=== PATIENT | male | born 1985 | race Caucasian/White ===

== ENCOUNTER 2018-02-17 11:37 | Inpatient (IN) | payer OTHER ==
[2018-02-17] MEDS ORDERED: Ondansetron 4 MG/2 ML SDV IVPUSH ONE (12:11)
[2018-02-17] MEDS ORDERED: Famotidine 20 MG/2 ML SDV IVPUSH ONE (12:11)
[2018-02-17] MEDS ORDERED: Sodium Chloride 0.9% 10 ML Syringe FLUSH PRN ×2 (12:11→14:37)
[2018-02-17] MEDS ORDERED: HYDROmorphone 0.5 MG/0.5 ML SYRINGE IVPUSH ONE ×2 (12:11→14:18)
[2018-02-17] MEDS ORDERED: Sodium Chloride 0.9% 1,000 ML IV SCH (12:15)
--- NOTE | 2018-02-17 12:27 | EDM.PDOC ---
ED HPI GENERAL MEDICAL PROBLEM - General Chief Complaint: Abdominal Pain Stated Complaint: ABDOMINAL PAIN/VOMITING/CHILLS Time Seen by Provider: 02/17/18 11:49 Source of Information: Reports: Patient, RN Notes Reviewed - History of Present Illness INITIAL COMMENTS - FREE TEXT/NARRATIVE: 32-year-old male started with abdominal pain last evening. The pain was mid lower abdomen dull ache with occasional cramping and mild nausea. he was able to sleep through the night but then felt more ill upon awakening this morning.It is more severe, the nausea is worse. He has not been able to eat and has had difficulty even drinking fluid. He has had 2 or 3 episodes of vomiting, had a small amountof loose stool but not watery diarrhea. No blood visible with that. He feels like he is having chills and low-grade fever.no Chest pain or difficulty breathing. Lower Abdomen Pain Score (Numeric/FACES): 8 - Related Data Allergies Allergy/AdvReac Type Severity Reaction Status Date / Time No Known Allergies Allergy Verified 02/17/18 11:48 Home Meds: Home Meds . [No Known Home Meds] 02/17/18 [History] Past Medical History Psychiatric History: Reports: PTSD Social & Family History - Tobacco Use Years of Tobacco use: 1 Packs/Tins Daily: 3 - Caffeine Use Caffeine Use: Reports: Energy Drinks, Soda - Recreational Drug Use Recreational Drug Use: No ED ROS GENERAL - Review of Systems Review Of Systems: See Below Constitutional: Reports: Fever, Chills (low-grade), Fatigue HEENT: Reports: No Symptoms Respiratory: Denies: Shortness of Breath Cardiovascular: Denies: Chest Pain GI/Abdominal: Reports: Abdominal Pain, Nausea, Vomiting. Denies: Diarrhea Musculoskeletal: Reports: Other Skin: Reports: No Symptoms (feels achy) Neurological: Reports: Dizziness ED EXAM, GI/ABD - Physical Exam Exam: See Below Exam Limited By: No Limitations General Appearance: Alert, Mild Distress Eyes: Bilateral: Normal Appearance Throat/Mouth: Normal Inspection, Normal Oropharynx Head: Atraumatic Neck: Supple, Full Range of Motion Respiratory/Chest: No Respiratory Distress, Lungs Clear, Normal Breath Sounds Cardiovascular: Regular Rate, Rhythm GI/Abdominal Exam: Tender (oderate tenderness left lower abdomen, lower mid abdomen, mild tenderness right lower quadrant). No: Guarding, Rebound Back Exam: No: CVA Tenderness (L), CVA Tenderness (R) Extremities: Normal Inspection, Normal Range of Motion Neurological: Alert, Oriented, No Motor/Sensory Deficits Skin Exam: Warm, Dry, Normal Color Course - Vital Signs Last Recorded V/S: Last Vital Signs Temp 99.9 F 02/17/18 11:55 Pulse 95 02/17/18 11:55 Resp 20 02/17/18 11:55 BP 117/68 02/17/18 11:55 Pulse Ox 100 02/17/18 11:55 - Orders/Labs/Meds Orders: Active Orders 24 hr Category Date Time Status Peripheral IV Care [RC] . DIRECTED Care 02/17/18 12:12 Active Abdomen Pelvis w Cont [CT] Stat Exams 02/17/18 13:32 Taken Levofloxacin/Dextrose 5%-Water [Levaquin in D5W 750 MG/ Med 02/17/18 15:17 Active 150 ML] 750 mg Premix Bag 1 bag IV ONETIME Sodium Chloride 0.9% [Normal Saline] 1,000 ml Med 02/17/18 12:15 Active IV ONETIME Sodium Chloride 0.9% [Saline Flush] Med 02/17/18 12:11 Active 10 ml FLUSH ASDIRECTED PRN Sodium Chloride 0.9% [Saline Flush] Med 02/17/18 14:37 Active 10 ml FLUSH ONETIME PRN metroNIDAZOLE/Normal Saline [Flagyl 500 MG in NS 100 ML Med 02/17/18 15:17 Active ] 500 mg Premix Bag 1 bag IV ONETIME Peripheral IV Insertion Adult [OM.PC] Stat Oth 02/17/18 12:10 Ordered Medication Orders Sodium Chloride (Normal Saline) 1,000 mls @ 999 mls/hr IV ONETIME [facility] Last Admin: 02/17/18 12:31 Dose: 999 mls/hr Levofloxacin/Dextrose 750 mg/ (Premix) 150 mls @ 100 mls/hr IV ONETIME ONE Stop: 02/17/18 16:46 Last Admin: 02/17/18 15:30 Dose: 100 mls/hr Metronidazole 500 mg/ Premix 100 mls @ 100 mls/hr IV ONETIME ONE Stop: 02/17/18 16:16 Sodium Chloride (Saline Flush) 10 ml FLUSH ASDIRECTED PRN PRN Reason: Keep Vein Open Last Admin: 02/17/18 12:38 Dose: 10 ml Sodium Chloride (Saline Flush) 10 ml FLUSH ONETIME PRN PRN Reason: IV FLUSH Last Admin: 02/17/18 14:52 Dose: 10 ml Labs: Laboratory Tests 02/17/18 02/17/18 02/17/18 Range/Units 12:00 12:30 12:30 WBC 18.86 H (4.23-9.07) K/mm3 RBC 4.78 (4.63-6.08) M/mm3 Hgb 14.5 (13.7-17.5) gm/L Hct 42.0 (40.1-51.0) % MCV 87.9 (79.0-92.2) fl MCH 30.3 (25.7-32.2) pg MCHC 34.5 (32.2-35.5) g/dl RDW Std Deviation 41.3 (35.1-43.9) fL Plt Count 327 (163-337) K/mm3 MPV 10.7 (9.4-12.3) fl Neut % (Auto) 85.3 H (34.0-67.9) % Lymph % (Auto) 4.8 L (21.8-53.1) % [place] % (Auto) 9.4 (5.3-12.2) % Eos % (Auto) 0.1 L (0.8-7.0) Baso % (Auto) 0.1 (0.1-1.2) % Neut # (Auto) 16.08 H (1.78-5.38) K/mm3 Lymph # (Auto) 0.90 L (1.32-3.57) K/mm3 [place] # (Auto) 1.78 H (0.30-0.82) K/mm3 Eos # (Auto) 0.02 L (0.04-0.54) K/mm3 Baso # (Auto) 0.02 (0.01-0.08) K/mm3 Manual Slide Review Abnormal smear Sodium (136-145) mEq/L Potassium (3.5-5.1) mEq/L Chloride (98-107) mEq/L Carbon Dioxide (21-32) mEq/L Anion Gap (5-15) BUN (7-18) mg/dL Creatinine (0.7-1.3) mg/dL Est Cr Clr Drug Dosing mL/min Estimated GFR (MDRD) (>60) mL/min BUN/Creatinine Ratio (14-18) Glucose (74-106) mg/dL Calcium (8.5-10.1) mg/dL Total Bilirubin (0.2-1.0) mg/dL AST (15-37) U/L ALT (16-63) U/L Alkaline Phosphatase (46-116) U/L C-Reactive Protein 19.3 H* (<1.0) mg/dL Total Protein (6.4-8.2) g/dl Albumin (3.4-5.0) g/dl Globulin gm/dL Albumin/Globulin Ratio (1-2) Urine Color Dark yellow (Yellow) Urine Appearance Clear (Clear) Urine pH 8.5 H (5.0-8.0) Ur Specific [place] 1.020 (1.005-1.030) Urine Protein 1+ H (Negative) Urine Glucose (UA) Negative (Negative) Urine Ketones Trace H (Negative) Urine Occult Blood Negative (Negative) Urine Nitrite Negative (Negative) Urine Bilirubin 1+ H (Negative) Urine Urobilinogen 0.2 (0.2-1.0) Ur Leukocyte Esterase Negative (Negative) Urine RBC 0-5 (0-5) /hpf Urine WBC 0-5 (0-5) /hpf Ur Epithelial Cells Not seen (0-5) /hpf Urine Bacteria Few (FEW) /hpf Urine Mucus Few (FEW) /hpf 18 Range/Units 12:30 WBC (4.23-9.07) K/mm3 RBC (4.63-6.08) M/mm3 Hgb (13.7-17.5) gm/L Hct (40.1-51.0) % MCV (79.0-92.2) fl MCH (25.7-32.2) pg MCHC (32.2-35.5) g/dl RDW Std Deviation (35.1-43.9) fL Plt Count (163-337) K/mm3 MPV (9.4-12.3) fl Neut % (Auto) (34.0-67.9) % Lymph % (Auto) (21.8-53.1) % [place] % (Auto) (5.3-12.2) % Eos % (Auto) (0.8-7.0) Baso % (Auto) (0.1-1.2) % Neut # (Auto) (1.78-5.38) K/mm3 Lymph # (Auto) (1.32-3.57) K/mm3 [place] # (Auto) (0.30-0.82) K/mm3 Eos # (Auto) (0.04-0.54) K/mm3 Baso # (Auto) (0.01-0.08) K/mm3 Manual Slide Review Sodium 138 (136-145) mEq/L Potassium 3.9 (3.5-5.1) mEq/L Chloride 102 (98-107) mEq/L Carbon Dioxide 25 (21-32) mEq/L Anion Gap 14.9 (5-15) BUN 15 (7-18) mg/dL Creatinine 1.3 (0.7-1.3) mg/dL Est Cr Clr Drug Dosing 80.82 mL/min Estimated GFR (MDRD) > 60 (>60) mL/min BUN/Creatinine Ratio 11.5 L (14-18) Glucose 105 (74-106) mg/dL Calcium 9.6 (8.5-10.1) mg/dL Total Bilirubin 1.7 H (0.2-1.0) mg/dL AST 30 (15-37) U/L ALT 75 H (16-63) U/L Alkaline Phosphatase 58 (46-116) U/L C-Reactive Protein (<1.0) mg/dL Total Protein 7.7 (6.4-8.2) g/dl Albumin 4.1 (3.4-5.0) g/dl Globulin 3.6 gm/dL Albumin/Globulin Ratio 1.1 (1-2) Urine Color (Yellow) Urine Appearance (Clear) Urine pH (5.0-8.0) Ur Specific [place] (1.005-1.030) Urine Protein (Negative) Urine Glucose (UA) (Negative) Urine Ketones (Negative) Urine Occult Blood (Negative) Urine Nitrite (Negative) Urine Bilirubin (Negative) Urine Urobilinogen (0.2-1.0) Ur Leukocyte Esterase (Negative) Urine RBC (0-5) /hpf Urine WBC (0-5) /hpf Ur Epithelial Cells (0-5) /hpf Urine Bacteria (FEW) /hpf Urine Mucus (FEW) /hpf Meds: Medications Generic Name Dose Route Start Last Admin Trade Name Mikeq PRN Reason Stop Dose Admin Sodium Chloride 1,000 mls @ 999 mls/hr 02/17/18 12:15 02/17/18 12:31 Normal Saline IV 999 mls/hr ONETIME [facility] Administration Levofloxacin/Dextrose 750 mg/ 150 mls @ 100 mls/hr 02/17/18 15:17 02/17/18 15 :30 Premix IV 02/17/18 16:46 100 mls/hr ONETIME ONE Administration Metronidazole 500 mg/ Premix 100 mls @ 100 mls/hr 02/17/18 15:17 IV 02/17/18 16:16 ONETIME ONE Sodium Chloride 10 ml 02/17/18 12:11 02/17/18 12:38 Saline Flush FLUSH 10 ml ASDIRECTED PRN Administration Keep Vein Open Sodium Chloride 10 ml 02/17/18 14:37 02/17/18 14:52 Saline Flush FLUSH 10 ml ONETIME PRN Administration IV FLUSH Discontinued Medications Generic Name Dose Route Start Last Admin Trade Name Robert PRN Reason Stop Dose Admin Diatrizoate Meglum/Diatrizoate Sod 90 ml 02/17/18 14:37 02/17/18 14:52 Gastrografin 37% PO 02/17/18 14:38 90 ml ONETIME ONE Administration Famotidine 20 mg 02/17/18 12:11 02/17/18 12:35 Pepcid IVPUSH 02/17/18 12:12 20 mg ONETIME ONE Administration Hydromorphone HCl 0.5 mg 02/17/18 12:11 02/17/18 12:34 Dilaudid IVPUSH 02/17/18 12:12 0.5 mg ONETIME ONE Administration Hydromorphone HCl 0.5 mg 02/17/18 14:18 02/17/18 14:24 Dilaudid IVPUSH 02/17/18 14:19 0.5 mg ONETIME ONE Administration Iopamidol 125 ml 02/17/18 14:37 02/17/18 14:52 Isovue-300 (61%) IVPUSH 02/17/18 14:38 125 ml ONETIME ONE Administration Ondansetron HCl 4 mg 02/17/18 12:11 02/17/18 12:32 Zofran IVPUSH 02/17/18 12:12 4 mg ONETIME ONE Administration - Re-Assessments/Exams Free Text/Narrative Re-Assessment/Exam: 02/17/18 15:39 white blood count elevated at 18,000 range C-reactive protein 19. CT of abdomen pelvis has been done which does show acute diverticulitis. Levaquin ordered along with IV Flagyl.Has had IV Dilaudid 0.5 mg 2 with fairly good relief. He has also had IV Zofran and IV Pepcid. He will be admitted for further inpatient treatment. Departure - Departure Time of Disposition: 15:30 Disposition: Admitted As Inpatient 65 Condition: Fair Clinical Impression: Diverticulitis large intestine Qualifiers: Diverticulitis bleeding: without bleeding Diverticulitis complication: unspecified complication status Qualified Code(s): K57.32 - Diverticulitis of large intestine without perforation or abscess without bleeding - Discharge Information Referrals: Monica Perkins DO [Primary Care Provider] - Forms: ED Department Discharge ED Communication - Discussed Case With (1) Discussed Case With (1): Admitting Provider (Dr Farah, decision to admit at about 15:30.) - My Orders Last 24 Hours: My Active Orders 02/17/18 12:10 Peripheral IV Insertion Adult [OM.PC] Stat 02/17/18 12:11 Sodium Chloride 0.9% [Saline Flush] 10 ml FLUSH ASDIRECTED PRN 02/17/18 12:12 Peripheral IV Care [RC] . DIRECTED 02/17/18 12:15 Sodium Chloride 0.9% [Normal Saline] 1,000 ml IV ONETIME 02/17/18 13:32 Abdomen Pelvis w Cont [CT] Stat 02/17/18 14:37 Sodium Chloride 0.9% [Saline Flush] 10 ml FLUSH ONETIME PRN 02/17/18 15:17 Levofloxacin/Dextrose 5%-Water [Levaquin in D5W 750 MG/150 ML] 750 mg Premix Bag 1 bag IV ONETIME metroNIDAZOLE/Normal Saline [Flagyl 500 MG in NS 100 ML] 500 mg Premix Bag 1 bag IV ONETIME - Assessment/Plan Last 24 Hours: My Active Orders 02/17/18 12:10 Peripheral IV Insertion Adult [OM.PC] Stat 02/17/18 12:11 Sodium Chloride 0.9% [Saline Flush] 10 ml FLUSH ASDIRECTED PRN 02/17/18 12:12 Peripheral IV Care [RC] . DIRECTED 02/17/18 12:15 Sodium Chloride 0.9% [Normal Saline] 1,000 ml IV ONETIME 02/17/18 13:32 Abdomen Pelvis w Cont [CT] Stat 02/17/18 14:37 Sodium Chloride 0.9% [Saline Flush] 10 ml FLUSH ONETIME PRN 02/17/18 15:17 Levofloxacin/Dextrose 5%-Water [Levaquin in D5W 750 MG/150 ML] 750 mg Premix Bag 1 bag IV ONETIME metroNIDAZOLE/Normal Saline [Flagyl 500 MG in NS 100 ML] 500 mg Premix Bag 1 bag IV ONETIME
[2018-02-17] MEDS ORDERED: Diatrizoate Meglumine/Diatrizoate Sodium 37% 120 ML Bottle PO ONE (14:37)
[2018-02-17] MEDS ORDERED: Iopamidol 612 MG/ML 150 ML Bottle IVPUSH ONE (14:37)
[2018-02-17] MEDS ORDERED: Levofloxacin/Dextrose 5%-Water 750 MG in Premix Bag 1 BAG IV ONE (15:17)
[2018-02-17] MEDS ORDERED: metroNIDAZOLE/Normal Saline 500 MG in Premix Bag 1 BAG IV ONE (15:17)
--- NOTE | 2018-02-17 17:30 | PCM.HP ---
H&P History of Present Illness - General Date of Service: 02/17/18 Admit Problem/Dx: Admission Diagnosis/Problem Admission Diagnosis/Problem Diverticulitis Source of Information: Patient, Family, Provider History Limitations: Reports: No Limitations - History of Present Illness Initial Comments - Free Text/Narative: 32 year old presents with a complaint of sharp/stabbing intermittent abdominal pain 1 day [employer]. This was associated with N/V as well. There was a low grade elevated temperature; additionally he admits to chills associated with the elevated temperature. He denies palpitations however did experience diaphoresis. The patient had popcorn last evening and noted that he began to subsequently experience abdominal pain. He has diverticulitis, and will be admitted to [facility]. Onset of Symptoms: Reports: Sudden Symptom Onset Date: 02/16/18 Duration of Symptoms: Reports: Day(s):, Getting Worse, Intermittent Location: Reports: Abdomen Quality: Reports: Sharp, Stabbing Severity: Moderate Improves with: Reports: Medication Worsens with: Reports: Eating Associated Symptoms: Reports: Fever/Chills, Malaise, Nausea/Vomiting, Weakness Lower Abdomen Pain Score (Numeric/FACES): 8 - Related Data Allergies/Adverse Reactions: Allergies Allergy/AdvReac Type Severity Reaction Status Date / Time No Known Allergies Allergy Verified 02/17/18 11:48 Home Medications: Home Meds . [No Known Home Meds] 02/17/18 [History] Past Medical History Psychiatric History: Reports: PTSD Social & Family History - Tobacco Use Smoking Status *Q: Former Smoker Years of Tobacco use: 1 Packs/Tins Daily: 3 Used Tobacco, but Quit: Yes Month/Year Tobacco Last Used: 2009 Second Hand Smoke Exposure: No - Caffeine Use Caffeine Use: Reports: Energy Drinks, Soda Other Caffeine Use: kick start - Recreational Drug Use Recreational Drug Use: No H&P Review of Systems - Review of Systems: Review Of Systems: See Below General: Reports: Fever, Chills, Malaise, Weakness, Decreased Appetite HEENT: Reports: No Symptoms Pulmonary: Reports: No Symptoms Cardiovascular: Reports: No Symptoms Gastrointestinal: Reports: Abdominal Pain, Nausea, Vomiting, Other (loose stool w/o blood or mucous) Genitourinary: Reports: No Symptoms Musculoskeletal: Reports: No Symptoms Skin: Reports: No Symptoms Psychiatric: Reports: Other (PTSD by [facility]) Neurological: Reports: No Symptoms Hematologic/Lymphatic: Reports: No Symptoms Immunologic: Reports: No Symptoms Exam - Exam Exam: See Below - Vital Signs Vital Signs: Last Vital Signs Temp 37.7 C 02/17/18 11:55 Pulse 95 02/17/18 11:55 Resp 20 02/17/18 11:55 BP 117/68 02/17/18 11:55 Pulse Ox 100 02/17/18 11:55 Weight: 105.778 kg - Exam Quality Assessment: DVT Prophylaxis General: Alert, Oriented, Cooperative HEENT: Conjunctiva Clear, Nares Patent, Normal Nasal Septum, Pupils Equal, Pupils Reactive, PERRLA Neck: Supple, Trachea Midline Lungs: Normal Respiratory Effort Cardiovascular: Regular Rate, Regular Rhythm GI/Abdominal Exam: Normal Bowel Sounds, Soft, No Organomegaly, No Distention, Guarding (no), Rigid (no), Rebound (no), Tender, Mass (no), Hepatomegaly (no) (Male) Exam: Deferred Rectal (Males) Exam: Deferred Back Exam: Normal Inspection Extremities: Normal Inspection, Non-Tender, No Pedal Edema, Slow Capillary Refill Skin: Warm Neurological: Cranial Nerves Intact Neuro Extensive - Mental Status: Alert, Oriented x3, Normal Mood/Affect, Normal Cognition, Memory Intact Neuro Extensive - Motor, Sensory, Reflexes: CN II-XII Intact Psychiatric: Alert, Normal Affect, Normal Mood - Patient Data Lab Results Last 24 hrs: Laboratory Results - last 24 hr 02/17/18 02/17/18 02/17/18 Range/Units 12:00 12:30 12:30 WBC 18.86 H (4.23-9.07) K/mm3 RBC 4.78 (4.63-6.08) M/mm3 Hgb 14.5 (13.7-17.5) gm/L Hct 42.0 (40.1-51.0) % MCV 87.9 (79.0-92.2) fl MCH 30.3 (25.7-32.2) pg MCHC 34.5 (32.2-35.5) g/dl RDW Std Deviation 41.3 (35.1-43.9) fL Plt Count 327 (163-337) K/mm3 MPV 10.7 (9.4-12.3) fl Neut % (Auto) 85.3 H (34.0-67.9) % Lymph % (Auto) 4.8 L (21.8-53.1) % [place] % (Auto) 9.4 (5.3-12.2) % Eos % (Auto) 0.1 L (0.8-7.0) Baso % (Auto) 0.1 (0.1-1.2) % Neut # (Auto) 16.08 H (1.78-5.38) K/mm3 Lymph # (Auto) 0.90 L (1.32-3.57) K/mm3 [place] # (Auto) 1.78 H (0.30-0.82) K/mm3 Eos # (Auto) 0.02 L (0.04-0.54) K/mm3 Baso # (Auto) 0.02 (0.01-0.08) K/mm3 Manual Slide Review Abnormal smear Sodium (136-145) mEq/L Potassium (3.5-5.1) mEq/L Chloride (98-107) mEq/L Carbon Dioxide (21-32) mEq/L Anion Gap (5-15) BUN (7-18) mg/dL Creatinine (0.7-1.3) mg/dL Est Cr Clr Drug Dosing mL/min Estimated GFR (MDRD) (>60) mL/min BUN/Creatinine Ratio (14-18) Glucose (74-106) mg/dL Calcium (8.5-10.1) mg/dL Total Bilirubin (0.2-1.0) mg/dL AST (15-37) U/L ALT (16-63) U/L Alkaline Phosphatase (46-116) U/L C-Reactive Protein 19.3 H* (<1.0) mg/dL Total Protein (6.4-8.2) g/dl Albumin (3.4-5.0) g/dl Globulin gm/dL Albumin/Globulin Ratio (1-2) Urine Color Dark yellow (Yellow) Urine Appearance Clear (Clear) Urine pH 8.5 H (5.0-8.0) Ur Specific [place] 1.020 (1.005-1.030) Urine Protein 1+ H (Negative) Urine Glucose (UA) Negative (Negative) Urine Ketones Trace H (Negative) Urine Occult Blood Negative (Negative) Urine Nitrite Negative (Negative) Urine Bilirubin 1+ H (Negative) Urine Urobilinogen 0.2 (0.2-1.0) Ur Leukocyte Esterase Negative (Negative) Urine RBC 0-5 (0-5) /hpf Urine WBC 0-5 (0-5) /hpf Ur Epithelial Cells Not seen (0-5) /hpf Urine Bacteria Few (FEW) /hpf Urine Mucus Few (FEW) /hpf 02/17/18 Range/Units 12:30 WBC (4.23-9.07) K/mm3 RBC (4.63-6.08) M/mm3 Hgb (13.7-17.5) gm/L Hct (40.1-51.0) % MCV (79.0-92.2) fl MCH (25.7-32.2) pg MCHC (32.2-35.5) g/dl RDW Std Deviation (35.1-43.9) fL Plt Count (163-337) K/mm3 MPV (9.4-12.3) fl Neut % (Auto) (34.0-67.9) % Lymph % (Auto) (21.8-53.1) % [place] % (Auto) (5.3-12.2) % Eos % (Auto) (0.8-7.0) Baso % (Auto) (0.1-1.2) % Neut # (Auto) (1.78-5.38) K/mm3 Lymph # (Auto) (1.32-3.57) K/mm3 [place] # (Auto) (0.30-0.82) K/mm3 Eos # (Auto) (0.04-0.54) K/mm3 Baso # (Auto) (0.01-0.08) K/mm3 Manual Slide Review Sodium 138 (136-145) mEq/L Potassium 3.9 (3.5-5.1) mEq/L Chloride 102 (98-107) mEq/L Carbon Dioxide 25 (21-32) mEq/L Anion Gap 14.9 (5-15) BUN 15 (7-18) mg/dL Creatinine 1.3 (0.7-1.3) mg/dL Est Cr Clr Drug Dosing 80.82 mL/min Estimated GFR (MDRD) > 60 (>60) mL/min BUN/Creatinine Ratio 11.5 L (14-18) Glucose 105 (74-106) mg/dL Calcium 9.6 (8.5-10.1) mg/dL Total Bilirubin 1.7 H (0.2-1.0) mg/dL AST 30 (15-37) U/L ALT 75 H (16-63) U/L Alkaline Phosphatase 58 (46-116) U/L C-Reactive Protein (<1.0) mg/dL Total Protein 7.7 (6.4-8.2) g/dl Albumin 4.1 (3.4-5.0) g/dl Globulin 3.6 gm/dL Albumin/Globulin Ratio 1.1 (1-2) Urine Color (Yellow) Urine Appearance (Clear) Urine pH (5.0-8.0) Ur Specific [place] (1.005-1.030) Urine Protein (Negative) Urine Glucose (UA) (Negative) Urine Ketones (Negative) Urine Occult Blood (Negative) Urine Nitrite (Negative) Urine Bilirubin (Negative) Urine Urobilinogen (0.2-1.0) Ur Leukocyte Esterase (Negative) Urine RBC (0-5) /hpf Urine WBC (0-5) /hpf Ur Epithelial Cells (0-5) /hpf Urine Bacteria (FEW) /hpf Urine Mucus (FEW) /hpf Result Diagrams: 02/17/18 12:30 02/17/18 12:30 - Problem List (1) PTSD (post-traumatic stress disorder) SNOMED Code(s): 17808036 ICD Code: F43.10 - POST-TRAUMATIC STRESS DISORDER, UNSPECIFIED Status: Acute Current Visit: Yes (2) BMI 34.0-34.9,adult SNOMED Code(s): 056561467 ICD Code: Z68.34 - BODY MASS INDEX (BMI) 34.0-34.9, ADULT Status: Acute Current Visit: Yes (3) Dehydration SNOMED Code(s): 51947874 ICD Code: E86.0 - DEHYDRATION Status: Acute Current Visit: Yes (4) Leukocytosis, unspecified SNOMED Code(s): 210170591, 776489347 ICD Code: D72.829 - ELEVATED WHITE BLOOD CELL COUNT, UNSPECIFIED Status: Acute Current Visit: Yes (5) Diverticulitis large intestine SNOMED Code(s): 6011372 ICD Code: K57.32 - DVTRCLI OF LG INT W/O PERFORATION OR ABSCESS W/O BLEEDING Status: Acute Current Visit: Yes Qualifiers: Diverticulitis bleeding: without bleeding Diverticulitis complication: unspecified complication status Qualified Code(s): K57.32 - Diverticulitis of large intestine without perforation or abscess without bleeding Problem List Initiated/Reviewed/Updated: Yes Orders Last 24hrs: Active Orders 24 hr Category Date Time Status Admission Status [Patient Status] [ADT] Routine ADT 02/17/18 15:58 Active Peripheral IV Care [RC] . DIRECTED Care 02/17/18 12:12 Active Abdomen Pelvis w Cont [CT] Stat Exams 02/17/18 13:32 Taken Sodium Chloride 0.9% [Normal Saline] 1,000 ml Med 02/17/18 12:15 Active IV ONETIME Sodium Chloride 0.9% [Saline Flush] Med 02/17/18 12:11 Active 10 ml FLUSH ASDIRECTED PRN Sodium Chloride 0.9% [Saline Flush] Med 02/17/18 14:37 Active 10 ml FLUSH ONETIME PRN Peripheral IV Insertion Adult [OM.PC] Stat Oth 02/17/18 12:10 Ordered Medication Orders Sodium Chloride (Normal Saline) 1,000 mls @ 999 mls/hr IV ONETIME [facility] Last Admin: 02/17/18 12:31 Dose: 999 mls/hr Sodium Chloride (Saline Flush) 10 ml FLUSH ASDIRECTED PRN PRN Reason: Keep Vein Open Last Admin: 02/17/18 12:38 Dose: 10 ml Sodium Chloride (Saline Flush) 10 ml FLUSH ONETIME PRN PRN Reason: IV FLUSH Last Admin: 02/17/18 14:52 Dose: 10 ml Assessment/Plan Comment:: Impression: Diverticulitis without perforation Abdominal pain with fever/chills Leukocytosis] Chronic PTSD () BMI 34.4 Plan: IVF Electrolytes replacement IV ATB Pain meds NPO except ice chips and meds DVT/GI prophylaxis (ARTEMIO/Pepcid)
[2018-02-17] MEDS ORDERED: Ondansetron 4 MG/2 ML SDV IVPUSH PRN (17:39)
[2018-02-17] MEDS ORDERED: HYDROmorphone 0.5 MG/0.5 ML SYRINGE IVPUSH PRN (17:40)
[2018-02-17] MEDS ORDERED: Lactated Ringers 1,000 ML IV ONE ×2 (17:41→20:09)
[2018-02-17] MEDS: Pantoprazole 40 MG Vial IVPUSH SCH (18:47)
[2018-02-17] MEDS: Ketorolac 15 MG/ML SDV IVPUSH SCH (20:18)
[2018-02-17] MEDS: Famotidine 20 MG/2 ML SDV IVPUSH SCH (20:24)
[2018-02-17] MEDS: Lactated Ringers 1,000 ML IV SCH (21:25)
[2018-02-18] MEDS: metroNIDAZOLE/Normal Saline 500 MG in Premix Bag 1 BAG IV SCH ×4 (00:31→22:16)
[2018-02-18] MEDS ORDERED: Acetaminophen 325 MG Tab PO PRN (00:40)
[2018-02-18] MEDS: Lactated Ringers 1,000 ML IV SCH ×4 (02:21→13:35)
[2018-02-18] MEDS: Ketorolac 15 MG/ML SDV IVPUSH SCH ×4 (03:15→21:09)
[2018-02-18] MEDS: Pantoprazole 40 MG Vial IVPUSH SCH (06:27)
[2018-02-18] MEDS: Famotidine 20 MG/2 ML SDV IVPUSH SCH (08:25)
--- NOTE | 2018-02-18 12:49 | PCM.PN ---
- General Info Date of Service: 02/18/18 Functional Status: Reports: Pain Controlled, Ambulating, Urinating - Review of Systems General: Reports: No Symptoms HEENT: Reports: No Symptoms Pulmonary: Reports: No Symptoms Cardiovascular: Reports: No Symptoms Gastrointestinal: Reports: Abdominal Pain (11/18; minimal) Genitourinary: Reports: No Symptoms Musculoskeletal: Reports: No Symptoms Skin: Reports: No Symptoms Neurological: Reports: No Symptoms Psychiatric: Reports: No Symptoms - Patient Data Vitals - Most Recent: Last Vital Signs Temp 36.2 C 02/18/18 07:40 Pulse 85 02/18/18 07:40 Resp 18 02/18/18 07:40 BP 112/63 02/18/18 07:40 Pulse Ox 95 02/18/18 07:40 Weight - Most Recent: 106.458 kg I&O - Last 24 Hours: Intake & Output 02/17/18 02/18/18 02/18/18 22:59 06:59 14:59 Intake Total 3652 Output Total 2150 Balance 1502 Lab Results Last 24 Hours: Laboratory Results - last 24 hr 02/17/18 02/17/18 02/17/18 Range/Units 12:30 12:30 12:30 WBC 18.86 H (4.23-9.07) K/mm3 RBC 4.78 (4.63-6.08) M/mm3 Hgb 14.5 (13.7-17.5) gm/L Hct 42.0 (40.1-51.0) % MCV 87.9 (79.0-92.2) fl MCH 30.3 (25.7-32.2) pg MCHC 34.5 (32.2-35.5) g/dl RDW Std Deviation 41.3 (35.1-43.9) fL Plt Count 327 (163-337) K/mm3 MPV 10.7 (9.4-12.3) fl Neut % (Auto) 85.3 H (34.0-67.9) % Lymph % (Auto) 4.8 L (21.8-53.1) % [place] % (Auto) 9.4 (5.3-12.2) % Eos % (Auto) 0.1 L (0.8-7.0) Baso % (Auto) 0.1 (0.1-1.2) % Neut # (Auto) 16.08 H (1.78-5.38) K/mm3 Lymph # (Auto) 0.90 L (1.32-3.57) K/mm3 [place] # (Auto) 1.78 H (0.30-0.82) K/mm3 Eos # (Auto) 0.02 L (0.04-0.54) K/mm3 Baso # (Auto) 0.02 (0.01-0.08) K/mm3 Manual Slide Review Abnormal smear Sodium 138 (136-145) mEq/L Potassium 3.9 (3.5-5.1) mEq/L Chloride 102 (98-107) mEq/L Carbon Dioxide 25 (21-32) mEq/L Anion Gap 14.9 (5-15) BUN 15 (7-18) mg/dL Creatinine 1.3 (0.7-1.3) mg/dL Est Cr Clr Drug Dosing 80.82 mL/min Estimated GFR (MDRD) > 60 (>60) mL/min BUN/Creatinine Ratio 11.5 L (14-18) Glucose 105 (74-106) mg/dL Lactic Acid (0.4-2.0) mmol/L Calcium 9.6 (8.5-10.1) mg/dL Magnesium (1.8-2.4) mg/dl Total Bilirubin 1.7 H (0.2-1.0) mg/dL AST 30 (15-37) U/L ALT 75 H (16-63) U/L Alkaline Phosphatase 58 (46-116) U/L C-Reactive Protein 19.3 H* (<1.0) mg/dL Total Protein 7.7 (6.4-8.2) g/dl Albumin 4.1 (3.4-5.0) g/dl Globulin 3.6 gm/dL Albumin/Globulin Ratio 1.1 (1-2) Triglycerides (<150) mg/dL Cholesterol (<200) mg/dL LDL Cholesterol Direct (<100) mg/dL HDL Cholesterol (40-59) mg/dL Lipase (73-393) U/L 02/18/18 02/18/18 02/18/18 Range/Units 05:42 05:42 05:42 WBC 19.84 H (4.23-9.07) K/mm3 RBC 3.98 L (4.63-6.08) M/mm3 Hgb 12.2 L (13.7-17.5) gm/L Hct 35.9 L (40.1-51.0) % MCV 90.2 (79.0-92.2) fl MCH 30.7 (25.7-32.2) pg MCHC 34.0 (32.2-35.5) g/dl RDW Std Deviation 42.2 (35.1-43.9) fL Plt Count 259 (163-337) K/mm3 MPV 10.6 (9.4-12.3) fl Neut % (Auto) 84.2 H (34.0-67.9) % Lymph % (Auto) 6.7 L (21.8-53.1) % [place] % (Auto) 8.5 (5.3-12.2) % Eos % (Auto) 0.3 L (0.8-7.0) Baso % (Auto) 0.1 (0.1-1.2) % Neut # (Auto) 16.73 H (1.78-5.38) K/mm3 Lymph # (Auto) 1.33 (1.32-3.57) K/mm3 [place] # (Auto) 1.68 H (0.30-0.82) K/mm3 Eos # (Auto) 0.05 (0.04-0.54) K/mm3 Baso # (Auto) 0.02 (0.01-0.08) K/mm3 Manual Slide Review Abnormal smear Sodium 139 (136-145) mEq/L Potassium 3.7 (3.5-5.1) mEq/L Chloride 106 (98-107) mEq/L Carbon Dioxide 27 (21-32) mEq/L Anion Gap 9.7 (5-15) BUN 12 (7-18) mg/dL Creatinine 1.2 (0.7-1.3) mg/dL Est Cr Clr Drug Dosing 87.56 mL/min Estimated GFR (MDRD) > 60 (>60) mL/min BUN/Creatinine Ratio 10.0 L (14-18) Glucose 115 H (74-106) mg/dL Lactic Acid 0.8 (0.4-2.0) mmol/L Calcium 8.6 (8.5-10.1) mg/dL Magnesium 1.9 (1.8-2.4) mg/dl Total Bilirubin 1.6 H (0.2-1.0) mg/dL AST 22 (15-37) U/L ALT 51 (16-63) U/L Alkaline Phosphatase 44 L (46-116) U/L C-Reactive Protein 32.9 H* (<1.0) mg/dL Total Protein 5.9 L (6.4-8.2) g/dl Albumin 2.8 L (3.4-5.0) g/dl Globulin 3.1 gm/dL Albumin/Globulin Ratio 0.9 L (1-2) Triglycerides 59 (<150) mg/dL Cholesterol 95 (<200) mg/dL LDL Cholesterol Direct 54 (<100) mg/dL HDL Cholesterol 28.0 L (40-59) mg/dL Lipase 106 (73-393) U/L Med Orders - Current: Current Medications Acetaminophen (Tylenol) 650 mg PO Q4H PRN PRN Reason: Pain/Fever Last Admin: 02/18/18 00:30 Dose: 650 mg Famotidine (Pepcid) 20 mg PO BID [facility] Hydromorphone HCl (Dilaudid) 0.5 mg IVPUSH Q6H PRN PRN Reason: Pain (moderate 4-6) Last Admin: 02/17/18 18:55 Dose: 0.5 mg Levofloxacin/Dextrose 750 mg/ (Premix) 150 mls @ 100 mls/hr IV Q24H [facility] Metronidazole 500 mg/ Premix 100 mls @ 100 mls/hr IV Q8H [facility] Last Admin: 02/18/18 06:27 Dose: 100 mls/hr Lactated Ringer's (Ringers, Lactated) 1,000 mls @ 100 mls/hr IV ASDIRECTED [facility] Ketorolac Tromethamine (Toradol) 15 mg IVPUSH Q6H [facility] Last Admin: 02/18/18 08:25 Dose: 15 mg Ondansetron HCl (Zofran) 4 mg IVPUSH Q8H PRN PRN Reason: Nausea/Vomiting Sodium Chloride (Saline Flush) 10 ml FLUSH ASDIRECTED PRN PRN Reason: Keep Vein Open Last Admin: 02/17/18 12:38 Dose: 10 ml Sodium Chloride (Saline Flush) 10 ml FLUSH ONETIME PRN PRN Reason: IV FLUSH Last Admin: 02/17/18 14:52 Dose: 10 ml Discontinued Medications Diatrizoate Meglum/Diatrizoate Sod (Gastrografin 37%) 90 ml PO ONETIME ONE Stop: 02/17/18 14:38 Last Admin: 02/17/18 14:52 Dose: 90 ml Famotidine (Pepcid) 20 mg IVPUSH ONETIME ONE Stop: 02/17/18 12:12 Last Admin: 02/17/18 12:35 Dose: 20 mg Famotidine (Pepcid) 20 mg IVPUSH BID [facility] Last Admin: 02/18/18 08:25 Dose: 20 mg Hydromorphone HCl (Dilaudid) 0.5 mg IVPUSH ONETIME ONE Stop: 02/17/18 12:12 Last Admin: 02/17/18 12:34 Dose: 0.5 mg Hydromorphone HCl (Dilaudid) 0.5 mg IVPUSH ONETIME ONE Stop: 02/17/18 14:19 Last Admin: 02/17/18 14:24 Dose: 0.5 mg Sodium Chloride (Normal Saline) 1,000 mls @ 999 mls/hr IV ONETIME [facility] Last Admin: 02/17/18 12:31 Dose: 999 mls/hr Levofloxacin/Dextrose 750 mg/ (Premix) 150 mls @ 100 mls/hr IV ONETIME ONE Stop: 02/17/18 16:46 Last Admin: 02/17/18 15:30 Dose: 100 mls/hr Metronidazole 500 mg/ Premix 100 mls @ 100 mls/hr IV ONETIME ONE Stop: 02/17/18 16:16 Last Admin: 02/17/18 17:28 Dose: 100 mls/hr Lactated Ringer's (Ringers, Lactated) 1,000 mls @ 999 mls/hr IV .BOLUS ONE Stop: 02/17/18 18:41 Last Admin: 02/17/18 18:47 Dose: 999 mls/hr Lactated Ringer's (Ringers, Lactated) 1,000 mls @ 999 mls/hr IV .BOLUS ONE Stop: 02/17/18 21:09 Last Admin: 02/17/18 20:27 Dose: 999 mls/hr Lactated Ringer's (Ringers, Lactated) 1,000 mls @ 200 mls/hr IV ASDIRECTED [facility] Last Admin: 02/18/18 06:25 Dose: 200 mls/hr Iopamidol (Isovue-300 (61%)) 125 ml IVPUSH ONETIME ONE Stop: 02/17/18 14:38 Last Admin: 02/17/18 14:52 Dose: 125 ml Ondansetron HCl (Zofran) 4 mg IVPUSH ONETIME ONE Stop: 02/17/18 12:12 Last Admin: 02/17/18 12:32 Dose: 4 mg Pantoprazole Sodium (Protonix Iv) 40 mg IVPUSH Q12H [facility] Last Admin: 02/18/18 06:27 Dose: 40 mg - Exam Quality Assessment: DVT Prophylaxis General: Alert, Oriented, Cooperative, No Acute Distress HEENT: Pupils Equal, Pupils Reactive, EOMI Neck: Trachea Midline, No JVD Lungs: Clear to Auscultation, Normal Respiratory Effort Cardiovascular: Regular Rate, Regular Rhythm GI/Abdominal Exam: Normal Bowel Sounds, Soft, No Organomegaly, No Distention, Tender (LLQ, minimal pain; non surgical) (Male) Exam: Deferred Back Exam: Normal Inspection Extremities: Normal Inspection, Normal Range of Motion, Non-Tender, No Pedal Edema, Normal Capillary Refill Skin: Warm Neurological: No New Focal Deficit Psy/Mental Status: Alert, Normal Affect, Normal Mood - Problem List & Annotations (1) PTSD (post-traumatic stress disorder) SNOMED Code(s): 84902015 Code(s): F43.10 - POST-TRAUMATIC STRESS DISORDER, UNSPECIFIED Status: Acute Current Visit: Yes (2) BMI 34.0-34.9,adult SNOMED Code(s): 130479402 Code(s): Z68.34 - BODY MASS INDEX (BMI) 34.0-34.9, ADULT Status: Acute Current Visit: Yes (3) Dehydration SNOMED Code(s): 26033167 Code(s): E86.0 - DEHYDRATION Status: Acute Current Visit: Yes (4) Leukocytosis, unspecified SNOMED Code(s): 200961605, 766448805 Code(s): D72.829 - ELEVATED WHITE BLOOD CELL COUNT, UNSPECIFIED Status: Acute Current Visit: Yes (5) Diverticulitis large intestine SNOMED Code(s): 4423251 Code(s): K57.32 - DVTRCLI OF LG INT W/O PERFORATION OR ABSCESS W/O BLEEDING Status: Acute Current Visit: Yes Qualifiers: Diverticulitis bleeding: without bleeding Diverticulitis complication: unspecified complication status Qualified Code(s): K57.32 - Diverticulitis of large intestine without perforation or abscess without bleeding - Problem List Review Problem List Initiated/Reviewed/Updated: Yes - My Orders Last 24 Hours: My Active Orders 02/17/18 17:39 Ondansetron [Zofran] 4 mg IVPUSH Q8H PRN 02/17/18 17:40 HYDROmorphone [Dilaudid] 0.5 mg IVPUSH Q6H PRN 02/17/18 18:47 Resuscitation Status Routine 02/17/18 21:00 Ketorolac [Toradol] 15 mg IVPUSH Q6H 02/17/18 23:00 metroNIDAZOLE/Normal Saline [Flagyl 500 MG in NS 100 ML] 500 mg Premix Bag 1 bag IV Q8H 02/18/18 00:40 Acetaminophen [Tylenol] 650 mg PO Q4H PRN 02/18/18 10:00 Lactated Ringers [Ringers, Lactated] 1,000 ml IV ASDIRECTED 02/18/18 10:16 Consult to Dietary [Consult to Jail Officer] [CONS] Routine 02/18/18 15:00 Levofloxacin/Dextrose 5%-Water [Levaquin in D5W 750 MG/150 ML] 750 mg Premix Bag 1 bag IV Q24H 02/18/18 21:00 Famotidine [Pepcid] 20 mg PO BID 02/18/18 Lunch Clear Liquid Diet [DIET] 02/19/18 05:00 CBC WITH AUTO DIFF [HEME] DAILY CMP [COMPREHENSIVE METABOLIC PN,CMP] [CHEM] DAILY CRP [C-REACTIVE PROTEIN] [CHEM] DAILY LACTIC ACID [CHEM] DAILY MAGNESIUM [CHEM] DAILY 02/20/18 05:00 CBC WITH AUTO DIFF [HEME] DAILY CRP [C-REACTIVE PROTEIN] [CHEM] DAILY LACTIC ACID [CHEM] DAILY MAGNESIUM [CHEM] DAILY 02/21/18 05:00 CBC WITH AUTO DIFF [HEME] DAILY CRP [C-REACTIVE PROTEIN] [CHEM] DAILY LACTIC ACID [CHEM] DAILY MAGNESIUM [CHEM] DAILY 02/22/18 05:00 CBC WITH AUTO DIFF [HEME] DAILY CRP [C-REACTIVE PROTEIN] [CHEM] DAILY LACTIC ACID [CHEM] DAILY MAGNESIUM [CHEM] DAILY - Plan Plan:: Impression: Diverticulitis without perforation Abdominal pain with fever/chills Leukocytosis] Chronic PTSD () BMI 34.4 Plan: IVF Electrolytes replacement IV ATB Pain meds NPO except ice chips and meds DVT/GI prophylaxis (ARTEMIO/Pepcid)
--- NOTE | 2018-02-18 14:14 | CT ---
CT abdomen and pelvis Technique: Multiple axial sections were obtained from above the dome of the diaphragm inferiorly through the pubic symphysis. Delayed images were obtained through the bladder. Intravenous and oral contrast has been given. Comparison: No prior abdominal imaging. Findings: Thickening within a portion of the sigmoid colon is seen with adjacent diverticuli. Diffuse inflammatory change is seen in this area. Findings are felt compatible with diverticulitis. No focal abscess seen at this time. Visualized lung bases show nothing acute. Liver shows fatty infiltration without focal abnormality. Spleen appears within normal limits. Adrenal glands show no nodule. Pancreas is normal. Gallbladder contains no calcified gallstones. Small low-density finding is seen within the right mid kidney most likely due to a cyst measuring 1 cm. Kidneys otherwise are unremarkable. Delayed images show contrast within the distal ureters and within the bladder. Aorta shows no aneurysmal dilatation. No retroperitoneal adenopathy or mesenteric abnormalities are seen. Appendix is seen and appears within normal limits. No pelvic mass or adenopathy is seen. Bone window settings were reviewed which show mild degenerative change which is scattered throughout the spine. Impression: 1. Findings of diverticulitis within the sigmoid colon as described above. 2. Other incidental findings. Diagnostic code #5 Agree with preliminary report issued by [employer] ([employer] preliminary report dictated on 02/17/18, 4:08 PM Central Time)
[2018-02-18] MEDS ORDERED: Levofloxacin/Dextrose 5%-Water 750 MG in Premix Bag 1 BAG IV SCH (15:00)
[2018-02-18] MEDS: Famotidine 20 MG Tab PO SCH (21:10)
[2018-02-19] MEDS: Lactated Ringers 1,000 ML IV SCH (02:18)
[2018-02-19] MEDS: Ketorolac 15 MG/ML SDV IVPUSH SCH ×2 (02:18→08:14)
[2018-02-19] MEDS ORDERED: Midazolam 1 MG/ML 2 ML SDV ONE (04:55)
[2018-02-19] MEDS: metroNIDAZOLE/Normal Saline 500 MG in Premix Bag 1 BAG IV SCH (06:56)
[2018-02-19] MEDS: Famotidine 20 MG Tab PO SCH (08:20)
--- NOTE | 2018-02-19 12:21 | PCM.DCSUM1 ---
Discharge Summary - Hospital Course HPI Initial Comments: 32-year-old male started with abdominal pain last evening. The pain was mid lower abdomen dull ache with occasional cramping and mild nausea. he was able to sleep through the night but then felt more ill upon awakening this morning.It is more severe, the nausea is worse. He has not been able to eat and has had difficulty even drinking fluid. He has had 2 or 3 episodes of vomiting, had a small amount of loose stool but not watery diarrhea. No blood visible with that. He feels like he is having chills and low-grade fever.no Chest pain or difficulty breathing. - Discharge Data Discharge Date: 02/19/18 (ADMIT 02/17/18) Discharge Disposition: Home, Self-Care 01 Condition: Good - Discharge Diagnosis/Problem(s) (1) Diverticulitis large intestine SNOMED Code(s): 1203808 ICD Code: K57.32 - DVTRCLI OF LG INT W/O PERFORATION OR ABSCESS W/O BLEEDING Status: Acute Current Visit: Yes Qualifiers: Diverticulitis bleeding: without bleeding Diverticulitis complication: unspecified complication status Qualified Code(s): K57.32 - Diverticulitis of large intestine without perforation or abscess without bleeding - Patient Summary/Data Operative Procedure(s) Performed: none Complications: none Consults: Consultations 02/18/18 10:16 Consult to Dietary [Consult to Hardboard Grinder] [CONS] Routine Labs Pending at D/C: none Recommended Follow-up Testing/Procedures: Follow up with PCP in 7-10 days -His CRP is elevated at 36.9 and he is slightly anemic with Hgb 11.4 and Hct 34 - this should be rechecked by PCP. Follow up with GI specialist not recommended at this time due to this being his first episode. If a second episode occurs, he should go to the specialist for Colonoscopy/EGD. Planned Operative Procedure(s) after DC: none Hospital Course: Impression: Diverticulitis without perforation, Improved to resolved -Abdominal pain, difficulty eating, fever/chills, N/V/D reported in ED--> resolved now -Leukocytosis: WBC 18.86-->19.84--> 13 -CRP 19.3-->32.9-->36.7 -CT abdomen/pelvis: Acute diverticulitis within the sigmoid colon -Levoquin and Flagyl started in ED--> continue x10 days at home -Zofran for nausea--> D/C now -Toradol for pain--> D/C now -IVF, supportive care -Advance diet as tolerated -NPO except ice chips and meds--> clear liquids--> soft diet--> regular diet today -Dietary consult for Diverticulitis Chronic PTSD () BMI 34.4 Plan: Admit to Med Surg unit Routine AM labs Orders as above Electrolytes replacement DVT/GI prophylaxis (ARTEMIO/Pepcid) Dietary consult for Diverticulitis He is a Full Code; PCP is Monica Perkins Garland has recovered quite well after being admitted for diverticulitis. This is his first time having this. This has since resolved. He should follow-up with his primary care provider in 7-10 days. Follow up with GI specialist is not recommended at this time since this is his first episode. If he has concurrent episodes, he should follow up with GI specialist for EGD/ Colonoscopy. His CRP is elevated at 36.9 and he is slightly anemic with Hgb 11.4 and Hct 34 - this should be rechecked by PCP at follow up. He was discharged home on Levofloxacin 750mg QDaily and Flagyl 500mg Q8H x 10 days as well as Florastor 250mg BID x20 days for completion of treatment. He will be discharged home today. - Patient Instructions Diet: Usual Diet as Tolerated Activity: As Tolerated Driving: May Drive Today Showering/Bathing: May Shower Notify Provider of: Fever, Increased Pain, Nausea and/or Vomiting - Discharge Plan Prescriptions/Med Rec: Levofloxacin 750 mg PO DAILY #10 tablet metroNIDAZOLE [Flagyl] 500 mg PO Q8H 10 Days #30 tab Saccharomyces Boulardii [Florastor] 250 mg PO BID #40 cap Home Medications: Home Meds Levofloxacin 750 mg PO DAILY #10 tablet 02/19/18 [Rx] Saccharomyces Boulardii [Florastor] 250 mg PO BID #40 cap 02/19/18 [Rx] metroNIDAZOLE [Flagyl] 500 mg PO Q8H 10 Days #30 tab 02/19/18 [Rx] Patient Handouts: Diverticulitis, [id number] Referrals: Monica Perkins DO [Primary Care Provider] - 03/01/18 8:30 am - Discharge Summary/Plan Comment DC Time >30 min.: Yes (40) - General Info Date of Service: 02/19/18 Admission Dx/Problem (Free Text: Admission Diagnosis/Problem Admission Diagnosis/Problem Diverticulitis Subjective Update: In to see Garland today. He is lying in bed. Overall he is doing quite well. He has no complaints. He has been sleeping well. His appetite is returning- we advanced his diet from soft to regular this afternoon and he did well. Ambulating. Pain is controlled. No abdominal pain, nausea, vomiting, diarrhea. Urinating. No concerns from nursing. Will be DCd back to home today with Levofloxacin and Flagyl x 10 days and Florastor x 20 days for completion of treatment. Functional Status: Reports: Pain Controlled, Tolerating Diet, Ambulating, Urinating - Review of Systems General: Reports: No Symptoms. Denies: Fever, Chills HEENT: Reports: No Symptoms Pulmonary: Reports: No Symptoms. Denies: Shortness of Breath Cardiovascular: Reports: No Symptoms. Denies: Chest Pain Gastrointestinal: Reports: No Symptoms. Denies: Abdominal Pain, Diarrhea, Nausea, Vomiting Genitourinary: Reports: No Symptoms. Denies: Dysuria, Frequency, Burning, Pain Musculoskeletal: Reports: No Symptoms Skin: Reports: No Symptoms Neurological: Reports: No Symptoms Psychiatric: Reports: No Symptoms - Patient Data Vitals - Most Recent: Last Vital Signs Temp 97.0 F 02/19/18 08:09 Pulse 84 02/19/18 08:09 Resp 20 02/19/18 08:09 BP 129/60 02/19/18 08:09 Pulse Ox 97 02/19/18 08:09 Weight - Most Recent: 235 lb 1.6 oz I&O - Last 24 hours: Intake & Output 02/18/18 02/19/18 02/19/18 22:59 06:59 14:59 Intake Total 1270 2825 0 Output Total 1900 2200 Balance -630 625 0 Lab Results - Last 24 hrs: Laboratory Results - last 24 hr 02/19/18 02/19/18 02/19/18 Range/Units 06:30 06:35 06:35 WBC 13.00 H (4.23-9.07) K/mm3 RBC 3.74 L (4.63-6.08) M/mm3 Hgb 11.4 L (13.7-17.5) gm/L Hct 34.0 L (40.1-51.0) % MCV 90.9 (79.0-92.2) fl MCH 30.5 (25.7-32.2) pg MCHC 33.5 (32.2-35.5) g/dl RDW Std Deviation 42.6 (35.1-43.9) fL Plt Count 269 (163-337) K/mm3 MPV 10.3 (9.4-12.3) fl Neut % (Auto) 81.4 H (34.0-67.9) % Lymph % (Auto) 10.1 L (21.8-53.1) % [place] % (Auto) 7.5 (5.3-12.2) % Eos % (Auto) 0.6 L (0.8-7.0) Baso % (Auto) 0.1 (0.1-1.2) % Neut # (Auto) 10.58 H (1.78-5.38) K/mm3 Lymph # (Auto) 1.31 L (1.32-3.57) K/mm3 [place] # (Auto) 0.98 H (0.30-0.82) K/mm3 Eos # (Auto) 0.08 (0.04-0.54) K/mm3 Baso # (Auto) 0.01 (0.01-0.08) K/mm3 Sodium 140 (136-145) mEq/L Potassium 3.9 (3.5-5.1) mEq/L Chloride 106 (98-107) mEq/L Carbon Dioxide 27 (21-32) mEq/L Anion Gap 10.9 (5-15) BUN 11 (7-18) mg/dL Creatinine 1.1 (0.7-1.3) mg/dL Est Cr Clr Drug Dosing 95.52 mL/min Estimated GFR (MDRD) > 60 (>60) mL/min BUN/Creatinine Ratio 10.0 L (14-18) Glucose 97 (74-106) mg/dL Lactic Acid 0.9 (0.4-2.0) mmol/L Calcium 8.8 (8.5-10.1) mg/dL Magnesium 2.1 (1.8-2.4) mg/dl Total Bilirubin 0.7 (0.2-1.0) mg/dL AST 19 (15-37) U/L ALT 42 (16-63) U/L Alkaline Phosphatase 47 (46-116) U/L C-Reactive Protein 36.7 H* (<1.0) mg/dL Total Protein 6.4 (6.4-8.2) g/dl Albumin 2.8 L (3.4-5.0) g/dl Globulin 3.6 gm/dL Albumin/Globulin Ratio 0.8 L (1-2) Med Orders - Current: Current Medications Acetaminophen (Tylenol) 650 mg PO Q4H PRN PRN Reason: Pain/Fever Last Admin: 02/18/18 00:30 Dose: 650 mg Famotidine (Pepcid) 20 mg PO BID [facility] Last Admin: 02/19/18 08:20 Dose: 20 mg Hydromorphone HCl (Dilaudid) 0.5 mg IVPUSH Q6H PRN PRN Reason: Pain (moderate 4-6) Last Admin: 02/17/18 18:55 Dose: 0.5 mg Levofloxacin/Dextrose 750 mg/ (Premix) 150 mls @ 100 mls/hr IV Q24H [facility] Last Admin: 02/18/18 14:07 Dose: 100 mls/hr Metronidazole 500 mg/ Premix 100 mls @ 100 mls/hr IV Q8H [facility] Last Admin: 02/19/18 06:56 Dose: 100 mls/hr Lactated Ringer's (Ringers, Lactated) 1,000 mls @ 100 mls/hr IV ASDIRECTED [facility] Last Admin: 02/19/18 02:18 Dose: 100 mls/hr Ondansetron HCl (Zofran) 4 mg IVPUSH Q8H PRN PRN Reason: Nausea/Vomiting Last Admin: 02/18/18 15:52 Dose: 4 mg Sodium Chloride (Saline Flush) 10 ml FLUSH ASDIRECTED PRN PRN Reason: Keep Vein Open Last Admin: 02/17/18 12:38 Dose: 10 ml Sodium Chloride (Saline Flush) 10 ml FLUSH ONETIME PRN PRN Reason: IV FLUSH Last Admin: 02/17/18 14:52 Dose: 10 ml Discontinued Medications Diatrizoate Meglum/Diatrizoate Sod (Gastrografin 37%) 90 ml PO ONETIME ONE Stop: 02/17/18 14:38 Last Admin: 02/17/18 14:52 Dose: 90 ml Famotidine (Pepcid) 20 mg IVPUSH ONETIME ONE Stop: 02/17/18 12:12 Last Admin: 02/17/18 12:35 Dose: 20 mg Famotidine (Pepcid) 20 mg IVPUSH BID [facility] Last Admin: 02/18/18 08:25 Dose: 20 mg Hydromorphone HCl (Dilaudid) 0.5 mg IVPUSH ONETIME ONE Stop: 02/17/18 12:12 Last Admin: 02/17/18 12:34 Dose: 0.5 mg Hydromorphone HCl (Dilaudid) 0.5 mg IVPUSH ONETIME ONE Stop: 02/17/18 14:19 Last Admin: 02/17/18 14:24 Dose: 0.5 mg Sodium Chloride (Normal Saline) 1,000 mls @ 999 mls/hr IV ONETIME [facility] Last Admin: 02/17/18 12:31 Dose: 999 mls/hr Levofloxacin/Dextrose 750 mg/ (Premix) 150 mls @ 100 mls/hr IV ONETIME ONE Stop: 02/17/18 16:46 Last Admin: 02/17/18 15:30 Dose: 100 mls/hr Metronidazole 500 mg/ Premix 100 mls @ 100 mls/hr IV ONETIME ONE Stop: 02/17/18 16:16 Last Admin: 02/17/18 17:28 Dose: 100 mls/hr Lactated Ringer's (Ringers, Lactated) 1,000 mls @ 999 mls/hr IV .BOLUS ONE Stop: 02/17/18 18:41 Last Admin: 02/17/18 18:47 Dose: 999 mls/hr Lactated Ringer's (Ringers, Lactated) 1,000 mls @ 999 mls/hr IV .BOLUS ONE Stop: 02/17/18 21:09 Last Admin: 02/17/18 20:27 Dose: 999 mls/hr Lactated Ringer's (Ringers, Lactated) 1,000 mls @ 200 mls/hr IV ASDIRECTED [facility] Last Admin: 02/18/18 06:25 Dose: 200 mls/hr Iopamidol (Isovue-300 (61%)) 125 ml IVPUSH ONETIME ONE Stop: 02/17/18 14:38 Last Admin: 02/17/18 14:52 Dose: 125 ml Ketorolac Tromethamine (Toradol) 15 mg IVPUSH Q6H [facility] Last Admin: 02/19/18 08:14 Dose: 15 mg Midazolam HCl (Versed 1 Mg/Ml) Confirm Administered Dose 2 mg .ROUTE .STK-MED ONE Stop: 02/19/18 04:56 Last Admin: 02/19/18 05:56 Dose: Not Given Ondansetron HCl (Zofran) 4 mg IVPUSH ONETIME ONE Stop: 02/17/18 12:12 Last Admin: 02/17/18 12:32 Dose: 4 mg Pantoprazole Sodium (Protonix Iv) 40 mg IVPUSH Q12H [facility] Last Admin: 02/18/18 06:27 Dose: 40 mg - Exam Quality Assessment: Reports: DVT Prophylaxis General: Reports: Alert, Oriented, Cooperative, No Acute Distress HEENT: Reports: Pupils Equal, Pupils Reactive, EOMI, Mucous Membr. Moist/[place]: Reports: Supple Lungs: Reports: Clear to Auscultation, Normal Respiratory Effort Cardiovascular: Reports: Regular Rate, Regular Rhythm GI/Abdominal Exam: Normal Bowel Sounds, Soft, Non-Tender, No Organomegaly, No Distention, No Abnormal Bruit, No Mass, Pelvis Stable (Male) Exam: Deferred Rectal (Males) Exam: Deferred Back Exam: Reports: Normal Inspection, Full Range of Motion Extremities: Normal Inspection, Normal Range of Motion, Non-Tender, No Pedal Edema, Normal Capillary Refill Skin: Reports: Warm, Dry, Intact Neurological: Reports: No New Focal Deficit Psy/Mental Status: Reports: Alert, Normal Affect, Normal Mood
== END 2018-02-19 13:32 | disposition home or self-care (01) | DRG 392 ==
LOC: JD.ED 11:37 → JD.MS 15:58
PROVIDERS: ADMIT Internal Medicine Cardiovascular Disease; ATTEND Internal Medicine Cardiovascular Disease
DX: K57.32 Diverticulitis of large intestine without perforation or abscess without bleeding (principal); E86.0 Dehydration; F17.210 Nicotine dependence, cigarettes, uncomplicated; D64.9 Anemia, unspecified; F43.10 Post-traumatic stress disorder, unspecified
CPT/HCPCS: 36415; 74177; 74177-26; 80053; 80061; 81001; 83605; 83690; 83735; 85025; 86140; 96361; 96365; 96375; 99284; 99284-25; A9270-GY; C9113; J1170; J1885; J1956; J2405; J7040; J7050; J7120; Q9963; Q9967